=== PATIENT | female | born 1940 | race Caucasian/White ===

== ENCOUNTER 2017-03-23 05:08 | Inpatient (IN) | payer OTHER, BC ==
[~2017-03-23] VITALS: Ht 157.5 cm; Wt 79.4 kg
[~2017-03-23 05:08] MED LIST: LORA-741 PO; LXP10 PO
[2017-03-23 05:49] LABS: HEMATOCRIT 40.8 % (37-47); MEAN CELL VOLUME 90.7 fL (80-100); MEAN CORPUSCULAR HEMOGLOBIN 31.6 pg (25-34); MEAN CORPUSCULAR HGB CONC 34.8 g/dl (32-36); PLATELET COUNT 77 K/uL (130-400); WHITE BLOOD COUNT 4.59 K/uL (4.8-10.8)
[2017-03-23 05:51] LABS: INR 1.1 (0.9-1.1); PROTHROMBIN TIME (PATIENT) 12.2 SECONDS (9.0-12.0)
[2017-03-23] MEDS ORDERED: LORA-741 PO (05:57)
[2017-03-23] MEDS ORDERED: BUSP-8 PO (05:57)
[2017-03-23 06:01] LABS: BUN/CREATININE RATIO 10.1 (10-20); CALCIUM 8.6 mg/dl (8.5-10.1); CREATININE 0.93 mg/dl (0.60-1.20); POTASSIUM 3.8 mmol/L (3.5-5.1)
[2017-03-23 06:05] LABS: ALB/GLOB RATIO 1.1 (0.9-2); CKMB/CK RATIO 1.4 (0-3.0)
--- NOTE | 2017-03-23 06:37 | DIAGNOSTIC IMAGING REPORT ---
CHEST ONE VIEW PORTABLE CLINICAL HISTORY: cp dyspnea COMPARISON STUDY: 05/24/2015 FINDINGS: The bones soft tissues and hemidiaphragms are normal. The cardiomediastinal silhouette is normal. The lungs are clear. The pulmonary vasculature is normal. Prior median sternotomy. Bipolar cardiac pacer in good position IMPRESSION: No acute process. The above report was generated using voice recognition software. It may contain grammatical, syntax or spelling errors. Electronically signed by: Jackson Lind M.D. 03/23/2017 6:36 AM Dictated Date/Time: 03/23/2017 6:35 AM
--- NOTE | 2017-03-23 06:47 | DIAGNOSTIC IMAGING REPORT ---
GALLBLADDER-ABD LIMITED CLINICAL HISTORY: elevated lifts abnormal liver function tests TECHNIQUE: Ultrasound COMPARISON STUDY: 10/30/2012. FINDINGS: Several gallstones. Moderate gallbladder wall edema at 4 mm. Trace pericholecystic fluid. Fatty infiltration of liver. Pancreas and right kidney are unremarkable. Common bile duct 4 mm. IMPRESSION: Findings consistent with acute cholecystitis. Normal caliber bile duct. The above report was generated using voice recognition software. It may contain grammatical, syntax or spelling errors. Electronically signed by: Jackson Lind M.D. 03/23/2017 6:46 AM Dictated Date/Time: 03/23/2017 6:44 AM
[2017-03-23] MEDS ORDERED: AMPICILLIN/SULBACTAM SOD INJ 3,000 MG in SODIUM CHLORIDE 0.9% 100ML 100 ML IV ONE (07:00)
--- NOTE | 2017-03-23 07:19 | EMERGENCY ROOM VISIT NOTE ---
History Report prepared by Abhi: Tresa Kim Under the Supervision of: Dr. Denny Fernandez D.O. First contact with patient: 05:39 Chief Complaint: CHEST PAIN Stated Complaint: CHEST PAIN Nursing Triage Summary: pt woke at 0200 with the sweats which she has been having for past couple months, she then develoepd mid sternal cp. History of Present Illness The patient is a 76 year old female who presents to the Emergency Room with complaints of persistent chest pain starting 0200 today. The patient has a history of anxiety and believes this might have been an anxiety attack. The patient has been having trouble with night sweats for the past 3 months. Today she woke up with the night sweats, but then she started having chest tightness which seemed to worsen. She is still having some chest pain currently. She reports nausea. She denies any fever, SOB, or abdominal pain. She has a history of lyme disease. She denies any history of liver problems. She denies any recent illness. Source of History: patient Onset: 0200 Position: chest Quality: other (tightness) Timing: other (persistent) Associated Symptoms: + diaphoresis, + nausea, No fevers, No SOB, No abdominal pain Review of Systems See HPI for pertinent positives & negatives. A total of 10 systems reviewed and were otherwise negative. Past Medical & Surgical Medical Problems: (1) Chest pain (2) Depression (3) H/O sick sinus syndrome (4) Pacemaker Surgical Problems: (1) S/P SUSI-BSO Family History FH: CAD (coronary artery disease) BROTHER FH: dementia MOTHER Social History Smoking Status: Never Smoker Drug Use: none Marital Status: Occupation Status: retired Current/Historical Medications Scheduled Buspirone Hcl (Buspirone Hcl), 10 MG PO BID Scheduled PRN Lorazepam (Ativan), 0.5 MG PO DAILY PRN for Anxiety Allergies Coded Allergies: Phenytoin (Verified Allergy, Unknown, HIVES, 03/23/17) Atorvastatin (Verified Adverse Reaction, Unknown, Leg pain, 03/23/17) Mushroom (Verified Adverse Reaction, Unknown, diarrhea, 03/23/17) Physical Exam Vital Signs Date Time Temp Pulse Resp B/P (MAP) Pulse Ox O2 Delivery O2 Flow Rate FiO2 03/23/17 06:46 62 18 133/72 98 Room Air 03/23/17 06:08 60 16 98 03/23/17 06:01 138/76 03/23/17 05:38 60 14 100 03/23/17 05:31 164/72 03/23/17 05:18 99 Room Air 03/23/17 05:16 68 03/23/17 05:14 64 15 177/87 100 Room Air 03/23/17 05:14 177/87 03/23/17 05:14 100 Room Air Physical Exam CONSTITUTIONAL/VITAL SIGNS: Reviewed / noted above. GENERAL: Non-toxic in appearance. INTEGUMENTARY: Warm, dry, and [place]. HEAD: Normocephalic. EYES: without scleral icterus or trauma. ENT/OROPHARYNX: clear and moist. LYMPHADENOPATHY/NECK: Is supple without lymphadenopathy or meningismus. RESPIRATORY: Lungs clear and equal. CARDIOVASCULAR: Regular rate and rhythm. GI/ABDOMEN: Soft and nontender. No organomegaly or pulsatile mass. No rebound or guarding. Normal bowel sounds. EXTREMITIES: Warm and well perfused. BACK: No CVA tenderness. NEUROLOGICAL: Intact without focal deficits. PSYCHIATRIC: normal affect. MUSCULOSKELETAL: Normally developed with good muscle tone. Medical Decision & Procedures ER Provider Diagnostic Interpretation: X ray results and stated below per my interpretation and radiology review. Radiology results as stated below per my review and radiologist interpretation: Chest X-ray: No pneumonia, no pneumothorax, no acute disease. GALLBLADDER-ABD LIMITED CLINICAL HISTORY: elevated lifts abnormal liver function tests TECHNIQUE: Ultrasound COMPARISON STUDY: 10/30/2012. FINDINGS: Several gallstones. Moderate gallbladder wall edema at 4 mm. Trace pericholecystic fluid. Fatty infiltration of liver. Pancreas and right kidney are unremarkable. Common bile duct 4 mm. IMPRESSION: Findings consistent with acute cholecystitis. Normal caliber bile duct. The above report was generated using voice recognition software. It may contain grammatical, syntax or spelling errors. Electronically signed by: Jackson Lind M.D. 03/23/2017 6:46 AM Dictated Date/Time: 03/23/2017 6:44 AM Laboratory Results 03/23/17 05:17 03/23/17 05:17 Test 03/23/17 05:17 03/23/17 05:32 Red Blood Count 4.50 M/uL (4.2-5.4) Mean Corpuscular Volume 90.7 fL (80-100) Mean Corpuscular Hemoglobin 31.6 pg (25-34) Mean Corpuscular Hemoglobin Concent 34.8 g/dl (32-36) RDW Standard Deviation 46.3 fL (36.4-46.3) RDW Coefficient of Variation 13.9 % (11.5-14.5) Mean Platelet Volume 12.0 fL (7.4-10.4) Prothrombin Time 12.2 SECONDS (9.0-12.0) Prothromb Time International Ratio 1.1 (0.9-1.1) Activated Partial Thromboplast Time 26.8 SECONDS (21.0-31.0) Partial Thromboplastin Ratio 1.0 Anion Gap 7.0 mmol/L (3-11) Est Creatinine Clear Calc Drug Dose 49.7 ml/min Estimated GFR () 70.2 Estimated GFR (Non- 60.5 BUN/Creatinine Ratio 10.1 (10-20) Calcium Level 8.6 mg/dl (8.5-10.1) Total Bilirubin 2.3 mg/dl (0.2-1) Aspartate Amino Transf (AST/SGOT) 216 U/L (15-37) Alanine Aminotransferase (ALT/SGPT) 105 U/L (12-78) Alkaline Phosphatase 121 U/L (45-117) Total Creatine Kinase 57 U/L (26-192) Creatine Kinase MB 0.8 ng/ml (0.5-3.6) Creatine Kinase MB Ratio 1.4 (0-3.0) Total Protein 6.9 gm/dl (6.4-8.2) Albumin 3.6 gm/dl (3.4-5.0) Globulin 3.3 gm/dl (2.5-4.0) Albumin/Globulin Ratio 1.1 (0.9-2) Bedside Troponin I < 0.030 ng/ml (0-0.045) Laboratory results as stated above per my review. ECG Indication: chest pain Rate (beats per minute): 74 Rhythm: other (atrial paced) Findings: no ectopy, other (no acute injury) ED Course 0608: Previous medical records were reviewed. The patient was evaluated in room A10. A complete history and physical examination was performed. 0632: On reevaluation, the patient is resting comfortably. I discussed the results and findings with her. She verbalized agreement of the treatment plan. The patient will be evaluated for further management and care. 0633: I [facility] the [facility] The patient will be evaluated for further treatment and disposition. 0653: I reevaluated the patient. I updated her on the results. 0700: Ampicillin Sodium/Sulbactam Sodium 3000 mg/Sodium Chloride 108 ml @ 200 mls/hr IV. Medical Decision Differentials considered include acute myocardial infarction, acute coronary syndrome, myocarditis, pericarditis, pericardial effusions /tamponade, esophageal perforation, thoracic aortic dissection, pulmonary embolism, pneumonia, pneumothorax, pancreatitis, shingles, acute cholecystitis, and perforated abdominal viscus. This is a 76-year-old female who presents to the ED with a chief complaint of chest discomfort as well as some chills and night sweats. The patient states that her symptoms started around 2 AM this morning. She felt that it was related to an anxiety attack. The patient's exam was relatively unremarkable. She is in no distress. Her vital signs are stable. She is afebrile. Exam did not reveal any significant right upper quadrant abdominal tenderness. Chest x- ray did not show acute disease. CBC is normal, AST, alkaline phosphatase, ALT and bilirubin are elevated. An ultrasound reveals findings suggesting acute cholecystitis. Because of the elevated bilirubin and transaminases, I spoke with Dr. Vasquez from the hospitalist service for further inpatient evaluation and care. The patient likely will need MRCP/ERCP and subsequent cholecystectomy. She was given IV Unasyn. Medication Reconcilliation Current Medication List: was personally reviewed by me Blood Pressure Screening Patient's blood pressure: Elevated blood pressure Will be addressed by hospitalist. Consults Time Called: 0632 Consulting Physician: Isabel Nielson [facility] Returned Call: [phone] Discussed the patient's case. The patient will be evaluated for further treatment and disposition. Impression Primary Impression: Acute cholecystitis Additional Impression: Bile duct stone with cholecystitis and obstruction Scribe Attestation The scribe's documentation has been prepared under my direction and personally reviewed by me in its entirety. I confirm that the note above accurately reflects all work, treatment, procedures, and medical decision making performed by me. Departure Information Dispostion Being Evaluated By Hospitalist Referrals Benson Sepulveda III, M.D. (PCP) Patient Instructions My [facility] Problem Qualifiers
[2017-03-23 07:54] VITALS: O2SAT 98; Ht 157.5 cm; Wt 79.4 kg
[2017-03-23] MEDS ORDERED: ONDANSETRON INJ 2 MG/ML 2 ML VIAL IV PRN (09:15)
--- NOTE | 2017-03-23 09:32 | EMERGENCY ROOM VISIT NOTE ---
ED Visit Note Patient was initially admitted to internal medicine. Patient was not signed out to me. My PA received a phone call from Dr. Johnson stating that he wants general surgery to admit this patient. I called the general surgeon who recommended that internal medicine admit the patient following reviewing the case. I then called back to internal medicine attending and discussed this with him. Patient will be admitted to internal medicine with a general surgery consult for acute cholecystitis on with a transaminitis and elevated bilirubin.
[2017-03-23 10:09] VITALS: BP 145/81; PULSE 71; TEMP 36.8; O2SAT 97
--- NOTE | 2017-03-23 10:32 | HISTORY & PHYSICAL EXAMINATION ---
DATE OF ADMISSION: 03/23/2017 PRIMARY CARE PROVIDER: Benson Sepulveda MD CHIEF COMPLAINT: Woke up with the chest pressure across the lower chest since around 04:00 a.m. with shortness of breath. 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 Apparently, she has been complaining of night sweats for about 4 months. She has had investigations for that, but did not have any significant cause for that. Early this morning today, she woke up with lower chest pressure across the chest, associated with shortness of breath. She did not have any fever or any sweating, but she has had some nausea but no vomiting. She has had these symptoms about 1 month ago that resolved spontaneously, but today, it did not go away and then, she came to the Emergency Room. She denies having any pain in the abdomen or any abdominal distention. She does not have any problem with urine and/or bowel habit. Denies to have any fever, any chills, any blurred vision, or any numbness or tingling in the extremities. In the Emergency Room, she was hemodynamically stable and she was noted to have elevated liver function tests on examination and also ultrasound did show acute cholecystitis. From that point, she was admitted to the hospital for further evaluation. Given her Lyme carditis and also ongoing chest pain, she was admitted to telemetry unit to rule out any ACS as well. PAST MEDICAL HISTORY: Significant sinus node dysfunction status post pacemaker, history of Lyme carditis, depression, hyperlipidemia, atypical chest pain and also migraine. PAST SURGICAL HISTORY: Total hysterectomy and status post pacemaker placement. FAMILY HISTORY: Significant that brother has heart disorder. Father had cerebral hemorrhage. Mother has dementia. SOCIAL HISTORY: She is . She has 2 children. She lives with her and she has been reasonably ambulant. REVIEW OF SYSTEMS: Systems reviewed are unremarkable except for those mentioned in history of present complaint. ALLERGIES: SHE IS ALLERGIC TO ATORVASTATIN, MUSHROOM AND PHENYTOIN. MEDICATIONS: As an outpatient, she has been on buspirone 10 mg b.i.d. and lorazepam 0.5 mg daily as needed. In the Epic system, she is noted to have Imitrex, gabapentin and also Boniva. PHYSICAL EXAMINATION: GENERAL: On examination in the Emergency Room, she was not having any acute distress. VITAL SIGNS: Temperature afebrile, pulse 64, blood pressure 110/59 and saturation 95% on room air. HEENT: Unremarkable. NECK: Supple. No JVD and no bruit. CHEST: Clear to auscultation bilaterally. HEART: S1 and S2 regular. ABDOMEN: Soft and benign. Minimally tender right upper quadrant. Vincent sign negative. Bowel sounds present. RECTAL: Deferred. EXTREMITIES: Trace edema bilaterally, more on the right than the left side. CENTRAL NERVOUS SYSTEM: She was alert, awake, and oriented x3. No focal sensory and/or motor deficit appreciated. LABORATORY DATA: Noted today, white count was 4.59, H&H is 14.2/40.8, and platelets was 77. Sodium 140, potassium 3.8, chloride 108, CO2 was 25, BUN 9, creatinine 0.93, random glucose 101, and calcium 8.6. Total bilirubin was 2.3. AST 216, ALT 105, and alkaline phosphatase 121. Troponin was less than 0.03. PT/INR unremarkable. DIAGNOSTIC STUDIES: Chest x-ray reported as no acute process and ultrasound of the gallbladder findings consistent with acute cholecystitis, normal caliber bile duct. EKG was in atrial paced rhythm and rate of [address]-T wave changes. IMPRESSION AND PLAN: 1. Atypical chest pain. The patient will be admitted to the telemetry unit. Doubt any acute coronary syndrome. Serial cardiac enzymes to rule out acute coronary syndrome. EKG with chest pain. Doubt any need for doing any echo at this time. 2. Acute cholecystitis. Ultrasonographic findings consistent with cholecystitis and associated with increased LFTs. No white count. The patient has a history of night sweats and continue with intravenous Unasyn. Surgery consultation. Probable cholecystectomy down the line. 3. 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 Serial cardiac enzymes and no acute findings at this time. 4. Hyperlipidemia. SHE IS ALLERGIC TO STATINS. Not taking any medications at this time. 5. Migraine. No acute attack. Had been on Imitrex as an outpatient. We will continue that if needed. 6. Depression and anxiety. Has been on BuSpar and Ativan. Continue with that. 7. Gastrointestinal prophylaxis with Maalox and Mylanta as needed. 8. Deep venous thrombosis prophylaxis. Her platelet count seems to be low at this time. She has had low platelet since 2013. We will not order any heparin at this time for anticoagulation. Monitor the platelet with SCDs and ambulation as soon as possible. 9. Code status. She will be a full code and further management will depend on clinical course. In my clinical judgment, the beneficiary meets criteria as per CMS for 2 midnight stay in the hospital. DC
--- NOTE | 2017-03-23 10:36 | Pre-Operative Consultation ---
History General Date of Service: Mar 23, 2017. Stated Complaint: "hot flashes" HPI HPI: The patient is a 76 year old female being seen for symptomatic cholelithiasis/ possible CBD stones and signs of cholecystitis. She presented to the Emergency Room with complaints of persistent chest pain starting last night. She descibes many of these episodes over the last month. The patient has a history of anxiety and believes this might have been an anxiety attack. The patient has been having trouble with night sweats for the past 3 months. Today she woke up with the night sweats, but then she started having chest tightness which seemed to worsen. Pain is better. She denies any fever, SOB, or abdominal pain. She has a history of lyme disease. She denies any history of liver problems. She denies any recent illness. Procedure Urgency: Acute Risk Assessment Daily beta jordon use?: No Problem List Medical Problems: (1) Acute cholecystitis Status: Acute (2) Bile duct stone with cholecystitis and obstruction Status: Acute (3) Precordial chest pain Status: Acute Medical & Surgical History Past Medical History: other (lyme disease with cardiomyopathy s/p pacer) Past Surgical History: other (pacer complicated with median sternotomy for ventricular injury during procedure) Family History Family History: heart disease, other (dementia) Social History Hx Tobacco Use In Past Year?: No (QUIT 40 YEARS AGO) Smoking Status: Never Smoker Drug Use: none Marital status: Housing status: lives with family Occupation status: retired Immunizations Have You Had Influenza Vaccine: N/A Have You Had Tetanus Vaccine: Unknown Date Of Tetanus Immunization: Aug 03, 2012 History of Pneumococcal: Unknown Date of Pneumococcal Vaccine: Oct 26, 2010 History Hepatitis B Vaccine: Unknown Allergies Allergies: Coded Allergies: Phenytoin (Verified Allergy, Unknown, HIVES, 03/23/17) Atorvastatin (Verified Adverse Reaction, Unknown, Leg pain, 03/23/17) Mushroom (Verified Adverse Reaction, Unknown, diarrhea, 03/23/17) Medications Current Inpatient Medications Current Inpatient Medications Medications (Trade) Dose Ordered Sig/Ellen Route Start Time Stop Time Status Last Admin Dose Admin Potassium Chloride/Sodium Chloride 1,000 ml @ 125 mls/hr Q8H IV 03/23/17 09:06 04/22/17 09:05 UNV Acetaminophen (Tylenol Tab) 650 mg Q4H PRN PO 03/23/17 09:15 10/24/17 09:14 UNV Ondansetron HCl (Zofran Inj) 4 mg Q6H PRN IV 03/23/17 09:15 04/22/17 09:14 UNV Ampicillin Sodium/ Sulbactam Sodium 3000 mg/Sodium Chloride 108 ml @ 200 mls/hr Q6H IV 03/23/17 09:15 04/02/17 09:14 UNV Lorazepam (Ativan Tab) 0.5 mg DAILY PRN PO 03/23/17 09:15 04/22/17 09:14 UNV Non-Formulary Medication (Buspirone Hcl ) 10 mg BID PO 03/23/17 21:00 04/22/17 20:59 UNV Review of Systems Review of Systems Constitutional: chills, denies diaphoresis, fever, denies weakness Eyes: reports: no symptoms ENT: reports: no symptoms reported Cardiovascular: reports: chest pain, chest tightness, diaphoresis, denies: chest pressure, palpitations, syncope Respiratory: denies: cough, short of breath, stridor, cyanosis Gastrointestinal: abdominal pain, denies constipation, denies diarrhea, nausea , denies vomiting Genitourinary - Female: reports: no symptoms Musculoskeletal: denies back pain, denies joint pain, denies joint swelling, denies muscle pain, denies muscle stiffness, denies neck pain Integumentary: denies change in hair/nails, denies dryness, denies lumps, denies rash Neurologic: denies: headache, numbness, seizure, general weakness, focal weakness Psychiatric: reports: no symptoms Endocrine: no symptoms Hematologic / Lymphatic: no symptoms Allergic / Immunologic: no symptoms Physical Exam Physical Exam General Appearance: + WD/WN, No distress Ears, Nose, Throat: + normal ENT inspection Neck: No abnormal inspection, No tracheal deviation, No lymphadenophy, No stiffness, No tenderness Respiratory: No decreased breath sounds, No rhonchi, No stridor, No wheezing Cardiovascular: No tachycardia, No gallop/S3, No diastolic murmur, No gallop/S4 , No bradycardia, No systolic murmur Abdomen: + tenderness (mild RUQ), No abnormal bowel sounds, No rebound, No distension, No hernia, No organomegaly, No guarding Extremities: No deformity, No unstable pelvis, No calf tenderness, No inflammation Neurologic/Psychiatric: No motor deficit/weakness, No disorientation, No sensory deficit Skin Characteristics: No abnormal color, No diaphoresis, No pallor, No jaundice , No rash Lymphatic: No abnormal adenopathy Diagnostics Labs Labs Results Past 24 Hours Test 03/23/17 05:17 03/23/17 05:32 03/23/17 09:39 Range/Units White Blood Count 4.59 4.8-10.8 K/uL Red Blood Count 4.50 4.2-5.4 M/uL Hemoglobin 14.2 12.0-16.0 g/dL Hematocrit 40.8 37-47 % Mean Corpuscular Volume 90.7 80-100 fL Mean Corpuscular Hemoglobin 31.6 25-34 pg Mean Corpuscular Hemoglobin Concent 34.8 32-36 g/dl RDW Standard Deviation 46.3 36.4-46.3 fL RDW Coefficient of Variation 13.9 11.5-14.5 % Platelet Count 77 130-400 K/uL Mean Platelet Volume 12.0 7.4-10.4 fL Prothrombin Time 12.2 9.0-12.0 SECONDS Prothromb Time International Ratio 1.1 0.9-1.1 Activated Partial Thromboplast Time 26.8 21.0-31.0 SECONDS Partial Thromboplastin Ratio 1.0 Sodium Level 140 136-145 mmol/L Potassium Level 3.8 3.5-5.1 mmol/L Chloride Level 108 98-107 mmol/L Carbon Dioxide Level 25 21-32 mmol/L Anion Gap 7.0 3-11 mmol/L Blood Urea Nitrogen 9 7-18 mg/dl Creatinine 0.93 0.60-1.20 mg/dl Est Creatinine Clear Calc Drug Dose 49.7 ml/min Estimated GFR () 70.2 Estimated GFR (Non- 60.5 BUN/Creatinine Ratio 10.1 10-20 Random Glucose 101 70-99 mg/dl Calcium Level 8.6 8.5-10.1 mg/dl Total Bilirubin 2.3 0.2-1 mg/dl Aspartate Amino Transf (AST/SGOT) 216 15-37 U/L Alanine Aminotransferase (ALT/SGPT) 105 12-78 U/L Alkaline Phosphatase 121 45-117 U/L Total Creatine Kinase 57 26-192 U/L Creatine Kinase MB 0.8 0.5-3.6 ng/ml Creatine Kinase MB Ratio 1.4 0-3.0 Total Protein 6.9 6.4-8.2 gm/dl Albumin 3.6 3.4-5.0 gm/dl Globulin 3.3 2.5-4.0 gm/dl Albumin/Globulin Ratio 1.1 0.9-2 Bedside Troponin I < 0.030 0-0.045 ng/ml Troponin I < 0.015 0-0.045 ng/ml Diagnostic Radiology Diagnostic Radiology GALLBLADDER-ABD LIMITED CLINICAL HISTORY: elevated lifts abnormal liver function tests TECHNIQUE: Ultrasound COMPARISON STUDY: 10/30/2012. FINDINGS: Several gallstones. Moderate gallbladder wall edema at 4 mm. Trace pericholecystic fluid. Fatty infiltration of liver. Pancreas and right kidney are unremarkable. Common bile duct 4 mm. IMPRESSION: Findings consistent with acute cholecystitis. Normal caliber bile duct. Impression Assessment and Plan Assessment and Plan Acute cholecystitis with possible CBD stone; TB 2.1 but normal CBD diameter -IVF -IV abx -GI consult to assess possible need for ERCP -will place on schedule for lap tootie with IOC and possible ERCP per GI medicine -Dr Booth/Marissa to do in morning
[2017-03-23] MEDS: NSS + 20MEQ KCL 1000ML 1,000 ML IV SCH ×2 (10:58→18:14)
[2017-03-23] MEDS: AMPICILLIN/SULBACTAM SOD INJ 3,000 MG in SODIUM CHLORIDE 0.9% 100ML 100 ML IV SCH ×2 (13:34→19:56)
[2017-03-23] MEDS ORDERED: HEPARIN SOD 5000 UNIT/0.5 ML CARP SQ SCH (14:00)
[2017-03-23 16:12] VITALS: BP 132/76; PULSE 58; TEMP 36.5; O2SAT 98
--- NOTE | 2017-03-23 17:53 | Anesthesiology Progress Note ---
Pre-OP Anesthesia Assessment Date of Note Mar 23, 2017. Review patient information reviewed, chart reviewed, labs reviewed, acceptable for surgery Notes Her comorbidities include sick sinus syndrome 2/2 Lyme disease for which she has a pacemaker. The Lyme disease caused a pericarditis which resulted a pericardectomy. She has a history of atypical chest pain and was admitted this time with chest pain and shortness of breath. Acute coronary has been ruled out. She has been having night sweats for the past four months, etiology unknown. She had an echocardiogram in 04/2015 which was normal with an EF of 60- 65%. She had a dobutamine stress echo in 2012 which was non-ischemic. She is very active physically. Her airway exam suggests her cords may be anterior. She is a mallampatti 2 with 2 1/2 finger-breadth thyromental distance.
[2017-03-23] MEDS: LORAZEPAM 0.5 MG TAB PO PRN (18:13)
[2017-03-23 19:59] VITALS: BP 143/72; PULSE 64; TEMP 36.5; O2SAT 99
[2017-03-24] VITALS (8 sets, daily range): BP systolic 109–158; BP diastolic 65–76; PULSE 61–84; TEMP 36.3–36.6; O2SAT 97–100
[2017-03-24] MEDS: AMPICILLIN/SULBACTAM SOD INJ 3,000 MG in SODIUM CHLORIDE 0.9% 100ML 100 ML IV SCH ×4 (02:13→21:37)
[2017-03-24] MEDS: NSS + 20MEQ KCL 1000ML 1,000 ML IV SCH ×3 (03:09→23:42)
[2017-03-24 07:20] LABS: HEMATOCRIT 40.9 % (37-47); MEAN CELL VOLUME 92.1 fL (80-100); MEAN CORPUSCULAR HEMOGLOBIN 30.4 pg (25-34); RED BLOOD COUNT 4.44 M/uL (4.2-5.4); WHITE BLOOD COUNT 2.92 K/uL (4.8-10.8)
[2017-03-24 07:22] LABS: MEAN PLATELET VOLUME 11.4 fL (7.4-10.4); PLATELET COUNT 60 K/uL (130-400)
[2017-03-24 07:47] LABS: BUN/CREATININE RATIO 8.9 (10-20); CALCIUM 8.5 mg/dl (8.5-10.1); CREATININE 0.81 mg/dl (0.60-1.20); POTASSIUM 4.1 mmol/L (3.5-5.1)
--- NOTE | 2017-03-24 08:49 | Surgery Progress Note ---
Surgery Progress Note Date of Service Mar 24, 2017. Subjective Post OP Day: + feeling well, + complaints (back pain from lying on bed), No chest pain, No SOB, No nausea, No vomiting Objective Vital Signs: Date Time Temp Pulse Resp B/P (MAP) Pulse Ox O2 Delivery O2 Flow Rate FiO2 03/24/17 07:34 99 03/24/17 07:23 36.6 61 16 134/76 (95) 99 Room Air 03/24/17 04:36 36.5 67 16 119/65 (83) 100 Room Air 03/24/17 04:00 Room Air 03/24/17 01:58 36.4 65 17 109/65 (80) 97 Room Air 03/23/17 23:35 Room Air 03/23/17 20:00 Room Air 03/23/17 19:59 36.5 64 16 143/72 (95) 99 Room Air 03/23/17 16:12 36.5 58 16 132/76 (94) 98 Room Air 03/23/17 16:00 Room Air 03/23/17 12:00 Room Air 03/23/17 10:09 36.8 71 20 145/81 (102) 97 Room Air 03/23/17 09:42 60 18 117/65 95 Room Air 03/23/17 08:57 61 General Appearance: WD/WN, no apparent distress Head: normocephalic, atraumatic Neck: trachea midline Respiratory/Chest: no respiratory distress, no accessory muscle use Abdomen: non tender, non distended, soft, no organomegaly, no pulsatile mass Laboratory Results: Results Past 24 Hours Test 03/23/17 09:39 03/23/17 15:20 03/23/17 21:01 03/24/17 06:31 Range/Units Troponin I < 0.015 < 0.015 < 0.015 0-0.045 ng/ml White Blood Count 2.92 4.8-10.8 K/uL Red Blood Count 4.44 4.2-5.4 M/uL Hemoglobin 13.5 12.0-16.0 g/dL Hematocrit 40.9 37-47 % Mean Corpuscular Volume 92.1 80-100 fL Mean Corpuscular Hemoglobin 30.4 25-34 pg Mean Corpuscular Hemoglobin Concent 33.0 32-36 g/dl RDW Standard Deviation 46.7 36.4-46.3 fL RDW Coefficient of Variation 13.8 11.5-14.5 % Platelet Count 60 130-400 K/uL Mean Platelet Volume 11.4 7.4-10.4 fL Sodium Level 142 136-145 mmol/L Potassium Level 4.1 3.5-5.1 mmol/L Chloride Level 110 98-107 mmol/L Carbon Dioxide Level 23 21-32 mmol/L Anion Gap 9.0 3-11 mmol/L Blood Urea Nitrogen 7 7-18 mg/dl Creatinine 0.81 0.60-1.20 mg/dl Est Creatinine Clear Calc Drug Dose 57.2 ml/min Estimated GFR () 82.9 Estimated GFR (Non- 71.5 BUN/Creatinine Ratio 8.9 10-20 Random Glucose 80 70-99 mg/dl Calcium Level 8.5 8.5-10.1 mg/dl Total Bilirubin 1.9 0.2-1 mg/dl Aspartate Amino Transf (AST/SGOT) 137 15-37 U/L Alanine Aminotransferase (ALT/SGPT) 116 12-78 U/L Alkaline Phosphatase 117 45-117 U/L Total Protein 6.6 6.4-8.2 gm/dl Albumin 3.3 3.4-5.0 gm/dl Globulin 3.3 2.5-4.0 gm/dl Albumin/Globulin Ratio 1.0 0.9-2 Assessment & Plan 76 year-old female with cholecystitis and elevated total bilirubin and LFTs. Abdominal ultrasound showing thickened gallbladder and multiple gallstones. No leukocytosis. Abdominal examination benign. Presented with chest pain/ pressure. Cardiac work-up negative. Todays labs show decrease in total bilirubin however still elevated. LFTs still elevated as well (AST 137, ALT 116 ) Alk Phos normal at 117. Plan: Plan for laparoscopic possible open cholecystectomy today. Dr. Booth has discussed surgery with patient and risks and informed consent obtained GI consultation was placed given elevated total bilirubin, await recommendations if not MRCP will plan for intraoperative cholangiogram Continue current medical management Keep patient NPO Dr. Booth has seen and examined patient, agrees with above
[2017-03-24] MEDS: LORAZEPAM 0.5 MG TAB PO PRN (10:41)
[2017-03-24] MEDS ORDERED: LIDOCAINE HCL 1% 20 ML VIAL ONE (11:20)
[2017-03-24] MEDS ORDERED: BUPIVACAINE 0.5 % 5 MG/1 ML MPF 30ML VIAL ONE (11:20)
[2017-03-24] MEDS ORDERED: CONRAY 60% 50 ML VIAL ONE (11:21)
--- NOTE | 2017-03-24 11:33 | History & Physical Bridge Note ---
H&P Re-Evaluation Bridge Note: I have examined the patient, reviewed the History & Physical and in the interval since the performance of the History & Physical I have noted the following changes of clinical significance: No changes noted
[2017-03-24] MEDS ORDERED: MIDAZOLAM HCL 1 MG/ML 2ML VIAL ONE (11:37)
[2017-03-24] MEDS ORDERED: PROPOFOL IV EMULSION 10 MG/ML 20 ML VIAL IV ONE (11:37)
[2017-03-24] MEDS ORDERED: FENTANYL CITRATE INJ 50 MCG/1 ML 2 ML VIAL ONE ×3 (11:37→14:02)
[2017-03-24] MEDS ORDERED: LIDOCAINE HCL 2% 2 ML VIAL (20MG/ML) ONE (11:37)
[2017-03-24] MEDS ORDERED: GLYCOPYRROLATE INJ 0.2 MG/ML VIAL ONE (11:40)
[2017-03-24] MEDS ORDERED: NEOSTIGMINE METHYLSULFATE 5 MG/5 ML SYR ONE (11:40)
--- NOTE | 2017-03-24 11:48 | Gastrointestinal Consultation ---
Gastrointestinal Consultation Date of Consultation: Mar 24, 2017 Attending Physician: Marj Johnson Consulting Physician: Rafael Kelly Reason for Consultation: Elevated bilirubin History of Present Illness Patient is a 76 year old female w PMHx of sinus node dysfunction s/p pacemaker placement, Lyme carditis, depression, hyperlipidemia, migraines who presented w c/o night sweats x 4 months. She also woke up early yesterday morning w lower chest pressure across lower chest and SOB. She denies any abd pain, n/v, fever, chills. Upon eval, VS stable, labs showed elevated LFTs: Tbili 2.3, AST 216, ALT 105, AP 121. Gallbladder u/s showed acute cholecystitis, but normal caliber CBD. She was seen by Dr. Thurston who recommended lap cholecystectomy (to be done at noon by Dr. Booth today). She will have intra op cholangiogram and if positive for CBD stone will need ERCP. Past Medical/Surgical History Medical Problems: (1) Acute cholecystitis Status: Acute (2) Bile duct stone with cholecystitis and obstruction Status: Acute (3) Precordial chest pain Status: Acute Past Medical History: See above Past Surgical History: Total hysterectomy Pacemaker placement Family History FH: CAD (coronary artery disease) BROTHER FH: dementia MOTHER Social History Smoking Status: Never Smoker Drug Use: none Marital Status: Occupation Status: retired Allergies Coded Allergies: Phenytoin (Verified Allergy, Unknown, HIVES, 03/23/17) Atorvastatin (Verified Adverse Reaction, Unknown, Leg pain, 03/23/17) Mushroom (Verified Adverse Reaction, Unknown, diarrhea, 03/23/17) Current Medications Home Meds and Scripts Medications Dose Route/Sig Max Daily Dose Days Date Category Ativan (Lorazepam) 0.5 Mg Tab 0.5 Mg PO DAILY PRN 03/23/17 Reported Buspirone Hcl 10 Mg Tab 10 Mg PO BID 03/23/17 Reported Review of Systems Constitutional: + sweats, No fever, No chills Respiratory: No cough, No shortness of breath Cardiac: No chest pain Abdomen: No pain, No nausea, No vomiting Skin: + jaundice, No rash, No itch Physical Exam Date Time Temp Pulse Resp B/P (MAP) Pulse Ox O2 Delivery O2 Flow Rate FiO2 03/24/17 08:00 Room Air 03/24/17 07:34 99 03/24/17 07:23 36.6 61 16 134/76 (95) 99 Room Air 03/24/17 04:36 36.5 67 16 119/65 (83) 100 Room Air 03/24/17 04:00 Room Air 03/24/17 01:58 36.4 65 17 109/65 (80) 97 Room Air 03/23/17 23:35 Room Air 03/23/17 20:00 Room Air 03/23/17 19:59 36.5 64 16 143/72 (95) 99 Room Air 03/23/17 16:12 36.5 58 16 132/76 (94) 98 Room Air 03/23/17 16:00 Room Air 03/23/17 12:00 Room Air General Appearance: WD/WN, no apparent distress Eyes: normal inspection, PERRL, EOMI Neck: supple, no JVD, trachea midline Respiratory/Chest: normal breath sounds, no respiratory distress, no accessory muscle use Cardiovascular: regular rate, rhythm, no gallop, no murmur Abdomen: normal bowel sounds, non tender, soft Extremities: normal inspection, no pedal edema, no calf tenderness Neurologic/Psych: alert, normal mood/affect, oriented x 3 Skin: normal color, no jaundice, no rash Laboratory Results Last 24 Hours Test 03/23/17 15:20 03/23/17 21:01 03/24/17 06:31 Troponin I < 0.015 ng/ml < 0.015 ng/ml White Blood Count 2.92 K/uL Red Blood Count 4.44 M/uL Hemoglobin 13.5 g/dL Hematocrit 40.9 % Mean Corpuscular Volume 92.1 fL Mean Corpuscular Hemoglobin 30.4 pg Mean Corpuscular Hemoglobin Concent 33.0 g/dl RDW Standard Deviation 46.7 fL RDW Coefficient of Variation 13.8 % Platelet Count 60 K/uL Mean Platelet Volume 11.4 fL Sodium Level 142 mmol/L Potassium Level 4.1 mmol/L Chloride Level 110 mmol/L Carbon Dioxide Level 23 mmol/L Anion Gap 9.0 mmol/L Blood Urea Nitrogen 7 mg/dl Creatinine 0.81 mg/dl Est Creatinine Clear Calc Drug Dose 57.2 ml/min Estimated GFR () 82.9 Estimated GFR (Non- 71.5 BUN/Creatinine Ratio 8.9 Random Glucose 80 mg/dl Calcium Level 8.5 mg/dl Total Bilirubin 1.9 mg/dl Aspartate Amino Transf (AST/SGOT) 137 U/L Alanine Aminotransferase (ALT/SGPT) 116 U/L Alkaline Phosphatase 117 U/L Total Protein 6.6 gm/dl Albumin 3.3 gm/dl Globulin 3.3 gm/dl Albumin/Globulin Ratio 1.0 Impression Patient is a 76 year old female w c/o lower chest pressure, sweats symptoms, cardiac testing unremarkable. LFTs elevated, gallbladder u/s showed acute cholecystitis w normal caliber CBD. LFTs improving this AM, she is w/o abd pain , n/v, jaundice. Plan - NPO for lap cholecystectomy by Dr. Booth at noon. - Will follow up on IOC, if positive, plan for ERCP - Continue current antibiotic coverage. Attg addendum: I reviewed chart and labs. Pt for tootie and IOC -- please reconsult as needed.
[2017-03-24] MEDS ORDERED: SURGICEL ABSORB HEMOSTAT 2IN X 14IN TOP ONE (13:54)
[2017-03-24] MEDS ORDERED: ROCURONIUM BROMIDE 10 MG/ML 5 ML VIAL IV ONE (13:57)
--- NOTE | 2017-03-24 14:41 | [facility] Operative Report ---
Operative Report Operative Date Mar 24, 2017. Pre-Operative Diagnosis Acute Cholecystitis Post-Operative Diagnosis Same as preoperative Procedure(s) Performed Laparoscopic Cholecystectomy with Cholangiogram Surgeon Carlie Booth MD [employer] Surgeon(s) Anna Ozuna PA-C Estimated Blood Loss 5 ml Findings Edematous gallbladder with adhesions, firm liver with cobblestone appearance Fluids 700 ml Specimens A.) Gallbladder and contents to pathology Drains None Anesthesia GETA, 15ml of local anesthetic (1% Xylocaine + 0.5% Marcaine, 50/50 mix) Complication(s) None Disposition Recovery Room / PACU Indications Trudy Cowan is a 76 year old woman with acute cholecystitis. Indications, risks, benefits and potential complications of laparoscopic cholecystectomy, possible open, possible intraoperative cholangiogram were discussed in detail with the patient. All questions answered to apparent satisfaction. Patient chose to proceed with surgery and freely signed the consent form. Description of Procedure Patient was brought to the operating room identified as Trudy Cowan, . She was placed on the operating table in supine position. Anesthesia was induced, and she was intubated without difficulty. The abdomen was prepped and draped in the usual sterile fashion. A time-out was held, verifying correct patient, site, procedure, allergies, pre op antibiotics, equipment and personnel. Local anesthetic was injected subcutaneously and an incision was made above the umbilicus. This was carried down through subcutaneous tissues; fascia was identified and two Sudha clamps were placed for upward traction. The fascia was incised using a scalpel. Peritoneum was identified, and two hemostats were placed for upward traction. This was incised using Metzenbaum scissors to enter the abdomen. A 12mm port was placed, and the 10mm endoscope was inserted. The abdomen was explored. The liver was cirrhotic and nodular in appearance. The gallbladder was slightly edematous appearing. A 5mm port was placed sub-xiphoid. The patient was placed in reverse Trendelenberg and left side down. Two more 5mm ports were placed along the right costal margin, approximately 4cm below under direct vision. The dome of the gallbladder was grasped and retracted cranially. The neck of the gallbladder was grasped and retracted laterally to open the area of dissection. Adhesions were taken down using gentle blunt dissection and electrocautery to reveal the cystic duct. This was dissected out and clearly defined using [place] graspers. The cystic artery was identified medial to the cystic duct; this also was dissected out circumferentially using [place] graspers. At this point, the critical view of safety was clearly visualized, with the cystic artery and duct leading only into the gallbladder with liver visible between and behind the two structures. A 5mm clip was placed on proximal cystic duct, and a partial ductotomy was made. A catheter was placed into the ductotomy leading to distal cystic duct, and a 2mm balloon inflated to secure the catheter in place. Saline was at first injected with some resistance. The catheter was repositioned, with subsequent saline injection without resistance. 5mm of contrast dye was then injected under direct fluoroscopy for the cholangiogram. Dye was seen to flow into the hepatic duct and both right and left hepatic ducts, as well as distally into the small intestine. The balloon was deflated and the catheter removed. Three clips were placed on the distal cystic duct, and the duct was cut with endoscopic scissors. The cystic artery was also clipped and cut. The gallbladder was then dissected off the liver bed using the hook for electrocautery. Once liberated from surrounding tissue, the gallbladder was placed in an Endocatch bag and was removed from the abdomen. The gallbladder fossa was inspected, and found to be hemostatic. A small amount of oozing was noted near the area of the clips, and a piece of surgicel was applied. The surgical site was again inspected and found to be hemostatic. The right upper quadrant was evacuated of irrigation fluid. 5mm ports were removed under direct vision. Insufflation was released and the 12mm port was removed. The sponge and instrument counts were verified to be correct x 2 by the nurse in charge. Fascia was closed at the umbilical port using 0 Vicryl in interrupted fashion. Skin was closed with Monocryl and Dermabond was applied. Patient was then awakened from anesthesia, extubated without difficulty, and was taken to PACU, having suffered no untoward events. I attest to the content of the Intraoperative Record and any orders documented therein. Any exceptions are noted below.
--- NOTE | 2017-03-24 14:42 | DIAGNOSTIC IMAGING REPORT ---
CHOLANGIOGRAM O.R. CLINICAL HISTORY: 76 years-old Female presenting with intraoperative evaluation of the bile ducts. TECHNIQUE: Fluoroscopy was provided for an intraoperative cholangiogram status post cholecystectomy. Contrast was injected through the cystic duct remnant. COMPARISON: Ultrasound from 03/23/2017. FINDINGS: A guidewire was introduced via the cystic duct remnant into the common duct. Cholecystectomy clips noted. No extravasation of contrast via the cystic duct remnant. The common bile duct is normal in course and caliber. There are no filling defects seen within the common bile duct to suggest a retained stone. Contrast extends into the small bowel. There is no intrahepatic bile duct dilatation. Fluoroscopy dosage (mGy): Not available. Fluoroscopy time: 25 seconds. Number of fluoroscopic spot images: 9. IMPRESSION: Fluoroscopy provided for an intraoperative cholangiogram status post cholecystectomy. No filling defects within the common bile duct. Electronically signed by: Sanjay Bang M.D. 03/24/2017 2:41 PM Dictated Date/Time: 03/24/2017 2:39 PM
[2017-03-24] MEDS ORDERED: OXYCODONE HCL IR 5 MG TAB (IMMEDIATE RELEASE) PO PRN (14:45)
[2017-03-24] MEDS ORDERED: MoRPHine SULFATE 2 MG/ML CARP IV PRN (14:45)
[2017-03-24] MEDS ORDERED: EpHEDrine SULFATE INJ 50 MG/ML AMP IV PRN (15:15)
[2017-03-24] MEDS ORDERED: FENTANYL CITRATE INJ 50 MCG/1 ML 2 ML VIAL IV PRN (15:15)
[2017-03-24] MEDS ORDERED: ATROPINE SULFATE 0.1 MG/ML 5ML SYR IV PRN (15:15)
[2017-03-24] MEDS ORDERED: FLUMAZENIL 0.1 MG/1 ML 10 ML VIAL IV PRN (15:15)
[2017-03-24] MEDS ORDERED: NALOXONE HCL 0.4 MG/1 ML VIAL/CARP IV PRN (15:15)
[2017-03-24] MEDS ORDERED: PROMETHAZINE HCL INJ 12.5 MG in SODIUM CHLORIDE 0.9% 50ML 50 ML IV PRN (15:15)
[2017-03-24] MEDS ORDERED: ONDANSETRON INJ 2 MG/ML 2 ML VIAL IV PRN (15:15)
[2017-03-24] MEDS ORDERED: LABETALOL HCL IV 5 MG/ML 20ML IV PRN (15:15)
--- NOTE | 2017-03-24 15:17 | Anesthesiology Progress Note ---
Anesthesia Post Op Note Date & Time Mar 24, 2017 at 15:16 Vital Signs Pain Intensity: 0 Vital Signs Past 12 Hours Date Time Temp Pulse Resp B/P (MAP) Pulse Ox O2 Delivery O2 Flow Rate FiO2 03/24/17 15:09 63 15 97 03/24/17 15:09 63 15 97 03/24/17 15:09 63 15 03/24/17 15:09 63 15 03/24/17 15:06 148/71 03/24/17 15:06 148/71 03/24/17 15:04 60 15 03/24/17 15:04 60 15 100 03/24/17 15:04 60 15 100 03/24/17 15:04 60 15 03/24/17 15:01 162/72 03/24/17 15:01 162/72 03/24/17 14:59 65 15 100 03/24/17 14:59 65 15 03/24/17 14:59 65 15 100 03/24/17 14:59 65 15 03/24/17 14:56 141/72 03/24/17 14:56 141/72 03/24/17 14:54 69 16 03/24/17 14:54 69 16 03/24/17 14:54 69 16 100 03/24/17 14:54 69 16 100 03/24/17 14:51 140/71 03/24/17 14:51 140/71 03/24/17 14:49 69 21 03/24/17 14:49 69 21 03/24/17 14:49 69 21 100 03/24/17 14:49 69 21 100 03/24/17 14:46 135/72 03/24/17 14:46 135/72 03/24/17 14:44 70 16 100 03/24/17 14:44 70 16 03/24/17 14:44 70 16 03/24/17 14:44 70 16 100 03/24/17 14:41 152/66 03/24/17 14:41 152/66 03/24/17 14:39 71 18 03/24/17 14:39 70 18 100 03/24/17 14:39 71 18 03/24/17 14:39 70 18 100 03/24/17 14:37 149/72 03/24/17 14:37 149/72 03/24/17 14:35 116/77 03/24/17 14:35 116/77 03/24/17 14:34 36.0 73 20 116/77 100 Oxymask 14 03/24/17 08:00 Room Air 03/24/17 07:34 99 03/24/17 07:23 36.6 61 16 134/76 (95) 99 Room Air 03/24/17 04:36 36.5 67 16 119/65 (83) 100 Room Air 03/24/17 04:00 Room Air Notes Mental Status: alert / awake / arousable, participated in evaluation Pt Amnestic to Procedure: Yes Nausea / Vomiting: adequately controlled Pain: adequately controlled Airway Patency, RR, SpO2: stable & adequate BP & HR: stable & adequate Hydration State: stable & adequate Anesthetic Complications: no major complications apparent
--- NOTE | 2017-03-24 16:39 | Progress Note ---
Internal Med Progress Note Date of Service: Mar 24, 2017. Provider Documentation: SUBJECTIVE: The patient was seen and examined Denies any pain No Nausea and or vomiting No fever,chills OBJECTIVE: Vital Signs-as noted below Exam: General-NO distress at rets Eyes-normal ENT-normal Neck-supple Lungs-clear Heart-Regular,no murmur Abdomen-Benign,no epigastric and or RUQ pain Extremities-No edema Neuro-AAOx3 Lab data as noted below. ASSESSMENT & PLAN: Atypical chest pain. Pain is resolved Serial Raad are unremarkable for any ACS Acute cholecystitis. Ultrasonographic findings consistent with cholecystitis and associated with increased LFTs. US ::Findings consistent with acute cholecystitis. Normal caliber bile duct. Appreciate Surgery input GI consulted for perioperative Cholangiogram No white count. 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 Serial cardiac enzymes and no acute findings at this time.-no Acs Hyperlipidemia. SHE IS ALLERGIC TO STATINS. Not taking any medications at this time. Migraine. No acute attack. Had been on Imitrex as an outpatient. We will continue that if needed. Depression and anxiety. Has been on BuSpar and Ativan. Continue with that. Gastrointestinal prophylaxis with Maalox and Mylanta as needed. Deep venous thrombosis prophylaxis. Her platelet count seems to be low at this time. She has had low platelet since 2012. We will not order any heparin at this time for anticoagulation. Monitor the platelet with SCDs and ambulation as soon as possible. Code status. She will be a full code and further management will depend on clinical course. Vital Signs: Date Time Temp Pulse Resp B/P (MAP) Pulse Ox O2 Delivery O2 Flow Rate FiO2 03/24/17 16:00 Room Air 03/24/17 15:25 65 100 03/24/17 15:25 65 03/24/17 15:21 147/63 03/24/17 15:20 60 17 98 03/24/17 15:20 60 17 03/24/17 15:17 142/66 03/24/17 15:15 60 16 100 03/24/17 15:15 60 16 03/24/17 15:11 163/73 03/24/17 15:10 60 18 03/24/17 15:10 60 18 98 03/24/17 15:09 63 15 97 03/24/17 15:09 63 15 97 03/24/17 15:09 63 15 03/24/17 15:09 63 15 03/24/17 15:06 148/71 03/24/17 15:06 148/71 03/24/17 15:04 60 15 03/24/17 15:04 60 15 100 03/24/17 15:04 60 15 100 03/24/17 15:04 60 15 03/24/17 15:01 162/72 03/24/17 15:01 162/72 03/24/17 14:59 65 15 100 03/24/17 14:59 65 15 03/24/17 14:59 65 15 100 03/24/17 14:59 65 15 03/24/17 14:56 141/72 03/24/17 14:56 141/72 03/24/17 14:54 69 16 03/24/17 14:54 69 16 03/24/17 14:54 69 16 100 03/24/17 14:54 69 16 100 03/24/17 14:51 140/71 03/24/17 14:51 140/71 03/24/17 14:49 69 21 03/24/17 14:49 69 21 03/24/17 14:49 69 21 100 03/24/17 14:49 69 21 100 03/24/17 14:46 135/72 03/24/17 14:46 135/72 03/24/17 14:44 70 16 100 03/24/17 14:44 70 16 03/24/17 14:44 70 16 03/24/17 14:44 70 16 100 03/24/17 14:41 152/66 03/24/17 14:41 152/66 03/24/17 14:39 71 18 03/24/17 14:39 70 18 100 03/24/17 14:39 71 18 03/24/17 14:39 70 18 100 03/24/17 14:37 149/72 03/24/17 14:37 149/72 03/24/17 14:35 116/77 03/24/17 14:35 116/77 03/24/17 14:34 36.0 73 20 116/77 100 Oxymask 14 03/24/17 08:00 Room Air 03/24/17 07:34 99 9/25/17 07:23 36.6 61 16 134/76 (95) 99 Room Air 03/24/17 04:36 36.5 67 16 119/65 (83) 100 Room Air 03/24/17 04:00 Room Air 03/24/17 01:58 36.4 65 17 109/65 (80) 97 Room Air 03/23/17 23:35 Room Air 03/23/17 20:00 Room Air 03/23/17 19:59 36.5 64 16 143/72 (95) 99 Room Air Lab Results: Results Past 24 Hours Test 03/23/17 21:01 03/24/17 06:31 Range/Units Troponin I < 0.015 0-0.045 ng/ml White Blood Count 2.92 4.8-10.8 K/uL Red Blood Count 4.44 4.2-5.4 M/uL Hemoglobin 13.5 12.0-16.0 g/dL Hematocrit 40.9 37-47 % Mean Corpuscular Volume 92.1 80-100 fL Mean Corpuscular Hemoglobin 30.4 25-34 pg Mean Corpuscular Hemoglobin Concent 33.0 32-36 g/dl RDW Standard Deviation 46.7 36.4-46.3 fL RDW Coefficient of Variation 13.8 11.5-14.5 % Platelet Count 60 130-400 K/uL Mean Platelet Volume 11.4 7.4-10.4 fL Sodium Level 142 136-145 mmol/L Potassium Level 4.1 3.5-5.1 mmol/L Chloride Level 110 98-107 mmol/L Carbon Dioxide Level 23 21-32 mmol/L Anion Gap 9.0 3-11 mmol/L Blood Urea Nitrogen 7 7-18 mg/dl Creatinine 0.81 0.60-1.20 mg/dl Est Creatinine Clear Calc Drug Dose 57.2 ml/min Estimated GFR () 82.9 Estimated GFR (Non- 71.5 BUN/Creatinine Ratio 8.9 10-20 Random Glucose 80 70-99 mg/dl Calcium Level 8.5 8.5-10.1 mg/dl Total Bilirubin 1.9 0.2-1 mg/dl Aspartate Amino Transf (AST/SGOT) 137 15-37 U/L Alanine Aminotransferase (ALT/SGPT) 116 12-78 U/L Alkaline Phosphatase 117 45-117 U/L Total Protein 6.6 6.4-8.2 gm/dl Albumin 3.3 3.4-5.0 gm/dl Globulin 3.3 2.5-4.0 gm/dl Albumin/Globulin Ratio 1.0 0.9-2
[2017-03-24] MEDS: OXYCODONE HCL IR 5 MG TAB (IMMEDIATE RELEASE) PO PRN ×2 (17:08→21:43)
[2017-03-25] MEDS: AMPICILLIN/SULBACTAM SOD INJ 3,000 MG in SODIUM CHLORIDE 0.9% 100ML 100 ML IV SCH ×4 (02:14→20:34)
[2017-03-25 03:32] VITALS: BP 124/73; PULSE 69; TEMP 36.6; O2SAT 93
[2017-03-25 06:50] VITALS: BP 118/66; PULSE 66; TEMP 36.6; O2SAT 95
[2017-03-25 07:00] LABS: HEMATOCRIT 38.2 % (37-47); MEAN CELL VOLUME 90.7 fL (80-100); MEAN CORPUSCULAR HEMOGLOBIN 31.1 pg (25-34); MEAN CORPUSCULAR HGB CONC 34.3 g/dl (32-36); RED BLOOD COUNT 4.21 M/uL (4.2-5.4); WHITE BLOOD COUNT 8.72 K/uL (4.8-10.8)
[2017-03-25 07:09] LABS: EOS % 0.1 %; IG% 0.2 %; LYMPH % 9.1 %; LYMPH ABS # 0.79 K/uL (1.2-3.4); MEAN PLATELET VOLUME 11.3 fL (7.4-10.4); MONO % 5.7 %; NEUT % 84.9 %; PLATELET COUNT 75 K/uL (130-400)
[2017-03-25 07:24] LABS: COMPLETE YES
[2017-03-25 07:30] LABS: BUN/CREATININE RATIO 8.8 (10-20); CALCIUM 7.8 mg/dl (8.5-10.1); CREATININE 0.83 mg/dl (0.60-1.20); POTASSIUM 4.2 mmol/L (3.5-5.1)
--- NOTE | 2017-03-25 07:45 | Anesthesiology Progress Note ---
Anesthesia Post Op Note Date & Time Mar 25, 2017 at 07:44 Vital Signs Pain Intensity: 0.0 Vital Signs Past 12 Hours Date Time Temp Pulse Resp B/P (MAP) Pulse Ox O2 Delivery O2 Flow Rate FiO2 03/25/17 06:50 36.6 66 18 118/66 (83) 95 Room Air 03/25/17 04:00 Room Air 03/25/17 03:32 36.6 69 17 124/73 (90) 93 Room Air 03/24/17 23:59 Nasal Cannula 2.0 03/24/17 23:36 36.3 75 19 148/68 (94) 97 Nasal Cannula 2.5 03/24/17 20:00 Nasal Cannula 2.0 Notes Mental Status: alert / awake / arousable, participated in evaluation Pt Amnestic to Procedure: Yes Nausea / Vomiting: adequately controlled Pain: adequately controlled Airway Patency, RR, SpO2: stable & adequate BP & HR: stable & adequate Hydration State: stable & adequate Anesthetic Complications: no major complications apparent
[2017-03-25] MEDS: NSS + 20MEQ KCL 1000ML 1,000 ML IV SCH ×2 (07:55→17:58)
[2017-03-25] MEDS: OXYCODONE HCL IR 5 MG TAB (IMMEDIATE RELEASE) PO PRN ×3 (08:00→19:19)
--- NOTE | 2017-03-25 09:17 | Surgery Progress Note ---
Surgery Progress Note Date of Service Mar 25, 2017. Subjective Post OP Day: 1 Patient examined at bedside this morning. Afebrile, vitals stable on room air. Had a panic attack last night, associated with chest pain. EKG completed, showed T-wave inversions; repeated this morning, no longer showing inversions. This morning feels great. Pain is well controlled. Tolerating clear liquids without N/V. Voiding without difficulty. Has not yet been out of bed. Would like to try regular diet for lunch. Objective Vital Signs: Date Time Temp Pulse Resp B/P (MAP) Pulse Ox O2 Delivery O2 Flow Rate FiO2 03/25/17 06:50 36.6 66 18 118/66 (83) 95 Room Air 03/25/17 04:00 Room Air 03/25/17 03:32 36.6 69 17 124/73 (90) 93 Room Air 03/24/17 23:59 Nasal Cannula 2.0 03/24/17 23:36 36.3 75 19 148/68 (94) 97 Nasal Cannula 2.5 03/24/17 20:00 Nasal Cannula 2.0 03/24/17 19:35 36.4 84 16 149/67 (94) 98 Nasal Cannula 2.0 03/24/17 16:00 Room Air 03/24/17 15:49 20 155/70 (98) 99 03/24/17 15:34 20 158/72 (100) 100 03/24/17 15:25 65 100 03/24/17 15:25 65 03/24/17 15:21 147/63 03/24/17 15:20 60 17 98 03/24/17 15:20 60 17 03/24/17 15:17 142/66 03/24/17 15:15 60 16 100 03/24/17 15:15 60 16 03/24/17 15:11 163/73 03/24/17 15:10 60 18 03/24/17 15:10 60 18 98 03/24/17 15:09 63 15 97 03/24/17 15:09 63 15 97 03/24/17 15:09 63 15 03/24/17 15:09 63 15 03/24/17 15:06 148/71 03/24/17 15:06 148/71 03/24/17 15:04 60 15 03/24/17 15:04 60 15 100 03/24/17 15:04 60 15 100 03/24/17 15:04 60 15 03/24/17 15:01 162/72 03/24/17 15:01 162/72 03/24/17 14:59 65 15 100 03/24/17 14:59 65 15 03/24/17 14:59 65 15 100 03/24/17 14:59 65 15 03/24/17 14:56 141/72 03/24/17 14:56 141/72 03/24/17 14:54 69 16 03/24/17 14:54 69 16 03/24/17 14:54 69 16 100 03/24/17 14:54 69 16 100 03/24/17 14:51 140/71 03/24/17 14:51 140/71 03/24/17 14:49 69 21 03/24/17 14:49 69 21 03/24/17 14:49 69 21 100 03/24/17 14:49 69 21 100 03/24/17 14:46 135/72 03/24/17 14:46 135/72 03/24/17 14:44 70 16 100 03/24/17 14:44 70 16 03/24/17 14:44 70 16 03/24/17 14:44 70 16 100 03/24/17 14:41 152/66 03/24/17 14:41 152/66 03/24/17 14:39 71 18 03/24/17 14:39 70 18 100 03/24/17 14:39 71 18 03/24/17 14:39 70 18 100 03/24/17 14:37 149/72 03/24/17 14:37 149/72 03/24/17 14:35 116/77 03/24/17 14:35 116/77 03/24/17 14:34 36.0 73 20 116/77 100 Oxymask 14 General Appearance: WD/WN, no apparent distress Head: normocephalic Neck: supple Respiratory/Chest: lungs clear, normal breath sounds Cardiovascular: regular rate, rhythm Abdomen: normal bowel sounds, non distended, soft, + tenderness (appropriately tender to palpation) Incision(s): clean, intact, no erythema, ecchymosis (mild surrounding ecchymosis at umbilicus) Laboratory Results: Results Past 24 Hours Test 03/25/17 06:52 Range/Units White Blood Count 8.72 4.8-10.8 K/uL Red Blood Count 4.21 4.2-5.4 M/uL Hemoglobin 13.1 12.0-16.0 g/dL Hematocrit 38.2 37-47 % Mean Corpuscular Volume 90.7 80-100 fL Mean Corpuscular Hemoglobin 31.1 25-34 pg Mean Corpuscular Hemoglobin Concent 34.3 32-36 g/dl Platelet Count 75 130-400 K/uL Mean Platelet Volume 11.3 7.4-10.4 fL Neutrophils (%) (Auto) 84.9 % Lymphocytes (%) (Auto) 9.1 % Monocytes (%) (Auto) 5.7 % Eosinophils (%) (Auto) 0.1 % Basophils (%) (Auto) 0.0 % Neutrophils # (Auto) 7.40 1.4-6.5 K/uL Lymphocytes # (Auto) 0.79 1.2-3.4 K/uL Monocytes # (Auto) 0.50 0.11-0.59 K/uL Eosinophils # (Auto) 0.01 0-0.5 K/uL Basophils # (Auto) 0.00 0-0.2 K/uL RDW Standard Deviation 46.3 36.4-46.3 fL RDW Coefficient of Variation 13.9 11.5-14.5 % Immature Granulocyte % (Auto) 0.2 % Immature Granulocyte # (Auto) 0.02 0.00-0.02 K/uL Sodium Level 139 136-145 mmol/L Potassium Level 4.2 3.5-5.1 mmol/L Chloride Level 109 98-107 mmol/L Carbon Dioxide Level 24 21-32 mmol/L Anion Gap 6.0 3-11 mmol/L Blood Urea Nitrogen 7 7-18 mg/dl Creatinine 0.83 0.60-1.20 mg/dl Est Creatinine Clear Calc Drug Dose 56.5 ml/min Estimated GFR () 80.5 Estimated GFR (Non- 69.5 BUN/Creatinine Ratio 8.8 10-20 Random Glucose 110 70-99 mg/dl Calcium Level 7.8 8.5-10.1 mg/dl Total Bilirubin 1.4 0.2-1 mg/dl Direct Bilirubin 0.5 0-0.2 mg/dl Aspartate Amino Transf (AST/SGOT) 83 15-37 U/L Alanine Aminotransferase (ALT/SGPT) 89 12-78 U/L Alkaline Phosphatase 98 45-117 U/L Total Protein 5.9 6.4-8.2 gm/dl Albumin 2.9 3.4-5.0 gm/dl Assessment & Plan Trudy Cowan is a 76 year old woman admitted with chest pain, found to have acute cholecystitis. She is now POD 1 s/p laparoscopic cholecystectomy with intraoperative cholangiogram. No CBD filling defects were seen on the cholangiogram. There were no complications, patient tolerated the procedure well. -Advance to regular diet -Pain control as needed -Encourage ambulation -Possible discharge after lunch if continues to do well Carlie Booth MD 03/25/17
[2017-03-25 11:34] VITALS: BP 97/57; PULSE 68; TEMP 36.5; O2SAT 94
--- NOTE | 2017-03-25 12:14 | Progress Note ---
Internal Med Progress Note Date of Service: Mar 25, 2017. Provider Documentation: SUBJECTIVE: The patient was seen and examined S/P Lap Cholecystectomy Doing well following Surgery Tolerating diet and likely discharge this afternoon OBJECTIVE: Vital Signs-as noted below Exam: General-NO distress at rest Eyes-normal ENT-normal Neck-supple Lungs-clear Heart-Regular,no murmur Abdomen-Benign,soft ,mildly tender ,bowel sound present Extremities-No edema Neuro-AAOx3 Lab data as noted below. ASSESSMENT & PLAN: Atypical chest pain. Pain is resolved Serial Raad are unremarkable for any ACS No more chest pain Acute cholecystitis. s/p Lap Sonam on 03/24/16 Ultrasonographic findings consistent with cholecystitis and associated with increased LFTs. US ::Findings consistent with acute cholecystitis. Normal caliber bile duct. Appreciate Surgery input GI consulted for perioperative Cholangiogram No white count. 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 Serial cardiac enzymes and no acute findings at this time.-no Acs Hyperlipidemia. SHE IS ALLERGIC TO STATINS. Not taking any medications at this time. Migraine. No acute attack. Had been on Imitrex as an outpatient. We will continue that if needed. Depression and anxiety. Has been on BuSpar and Ativan. Continue with that. Gastrointestinal prophylaxis with Maalox and Mylanta as needed. Deep venous thrombosis prophylaxis. Her platelet count seems to be low at this time. She has had low platelet since 2012. We will not order any heparin at this time for anticoagulation. Monitor the platelet with SCDs and ambulation as soon as possible. Code status. She will be a full code and further management will depend on clinical course. Likely discharge this afternoon Vital Signs: Date Time Temp Pulse Resp B/P (MAP) Pulse Ox O2 Delivery O2 Flow Rate FiO2 03/25/17 11:34 36.5 68 18 97/57 (70) 94 Room Air 03/25/17 08:00 Room Air 03/25/17 06:50 36.6 66 18 118/66 (83) 95 Room Air 03/25/17 04:00 Room Air 03/25/17 03:32 36.6 69 17 124/73 (90) 93 Room Air 03/24/17 23:59 Nasal Cannula 2.0 03/24/17 23:36 36.3 75 19 148/68 (94) 97 Nasal Cannula 2.5 03/24/17 20:00 Nasal Cannula 2.0 03/24/17 19:35 36.4 84 16 149/67 (94) 98 Nasal Cannula 2.0 03/24/17 16:00 Room Air 03/24/17 15:49 20 155/70 (98) 99 03/24/17 15:34 20 158/72 (100) 100 03/24/17 15:25 65 100 03/24/17 15:25 65 03/24/17 15:21 147/63 03/24/17 15:20 60 17 98 03/24/17 15:20 60 17 03/24/17 15:17 142/66 03/24/17 15:15 60 16 100 03/24/17 15:15 60 16 03/24/17 15:11 163/73 03/24/17 15:10 60 18 03/24/17 15:10 60 18 98 03/24/17 15:09 63 15 97 03/24/17 15:09 63 15 97 03/24/17 15:09 63 15 03/24/17 15:09 63 15 03/24/17 15:06 148/71 03/24/17 15:06 148/71 03/24/17 15:04 60 15 03/24/17 15:04 60 15 100 03/24/17 15:04 60 15 100 03/24/17 15:04 60 15 03/24/17 15:01 162/72 03/24/17 15:01 162/72 03/24/17 14:59 65 15 100 03/24/17 14:59 65 15 03/24/17 14:59 65 15 100 03/24/17 14:59 65 15 03/24/17 14:56 141/72 03/24/17 14:56 141/72 03/24/17 14:54 69 16 03/24/17 14:54 69 16 03/24/17 14:54 69 16 100 03/24/17 14:54 69 16 100 03/24/17 14:51 140/71 03/24/17 14:51 140/71 03/24/17 14:49 69 21 03/24/17 14:49 69 21 03/24/17 14:49 69 21 100 03/24/17 14:49 69 21 100 03/24/17 14:46 135/72 03/24/17 14:46 135/72 03/24/17 14:44 70 16 100 03/24/17 14:44 70 16 03/24/17 14:44 70 16 03/24/17 14:44 70 16 100 03/24/17 14:41 152/66 03/24/17 14:41 152/66 03/24/17 14:39 71 18 03/24/17 14:39 70 18 100 03/24/17 14:39 71 18 03/24/17 14:39 70 18 100 03/24/17 14:37 149/72 03/24/17 14:37 149/72 03/24/17 14:35 116/77 03/24/17 14:35 116/77 03/24/17 14:34 36.0 73 20 116/77 100 Oxymask 14 Lab Results: Results Past 24 Hours Test 03/25/17 06:52 Range/Units White Blood Count 8.72 4.8-10.8 K/uL Red Blood Count 4.21 4.2-5.4 M/uL Hemoglobin 13.1 12.0-16.0 g/dL Hematocrit 38.2 37-47 % Mean Corpuscular Volume 90.7 80-100 fL Mean Corpuscular Hemoglobin 31.1 25-34 pg Mean Corpuscular Hemoglobin Concent 34.3 32-36 g/dl Platelet Count 75 130-400 K/uL Mean Platelet Volume 11.3 7.4-10.4 fL Neutrophils (%) (Auto) 84.9 % Lymphocytes (%) (Auto) 9.1 % Monocytes (%) (Auto) 5.7 % Eosinophils (%) (Auto) 0.1 % Basophils (%) (Auto) 0.0 % Neutrophils # (Auto) 7.40 1.4-6.5 K/uL Lymphocytes # (Auto) 0.79 1.2-3.4 K/uL Monocytes # (Auto) 0.50 0.11-0.59 K/uL Eosinophils # (Auto) 0.01 0-0.5 K/uL Basophils # (Auto) 0.00 0-0.2 K/uL RDW Standard Deviation 46.3 36.4-46.3 fL RDW Coefficient of Variation 13.9 11.5-14.5 % Immature Granulocyte % (Auto) 0.2 % Immature Granulocyte # (Auto) 0.02 0.00-0.02 K/uL Sodium Level 139 136-145 mmol/L Potassium Level 4.2 3.5-5.1 mmol/L Chloride Level 109 98-107 mmol/L Carbon Dioxide Level 24 21-32 mmol/L Anion Gap 6.0 3-11 mmol/L Blood Urea Nitrogen 7 7-18 mg/dl Creatinine 0.83 0.60-1.20 mg/dl Est Creatinine Clear Calc Drug Dose 56.5 ml/min Estimated GFR () 80.5 Estimated GFR (Non- 69.5 BUN/Creatinine Ratio 8.8 10-20 Random Glucose 110 70-99 mg/dl Calcium Level 7.8 8.5-10.1 mg/dl Total Bilirubin 1.4 0.2-1 mg/dl Direct Bilirubin 0.5 0-0.2 mg/dl Aspartate Amino Transf (AST/SGOT) 83 15-37 U/L Alanine Aminotransferase (ALT/SGPT) 89 12-78 U/L Alkaline Phosphatase 98 45-117 U/L Total Protein 5.9 6.4-8.2 gm/dl Albumin 2.9 3.4-5.0 gm/dl
--- NOTE | 2017-03-25 15:19 | Discharge Instructions ---
Discharge Instructions Date of Service Mar 25, 2017. Admission Reason for Admission: Acute Cholecystitis, Chest Pain Discharge Discharge Diagnosis / Problem: Acute cholecystitis Discharge Goals Goal(s): Decrease discomfort, Improve function Activity Recommendations Activity Limitations: per Instructions/Follow-up section . Instructions / Follow-Up Instructions / Follow-Up -You may take Oxycodone as needed for pain that is not controlled with Tylenol or Ibuprofen. -Do not drive while taking narcotic pain medication (Oxycodone), or while you are still having abdominal pain. -You may resume your normal diet; you have no restrictions from a surgical perspective. -You have Dermabond (surgical glue) over your incisions. This will fall off on its own over time. You may shower - just wash gently over the incisions with warm, soapy water. Do not scrub. Do not soak, as in a bathtub or swimming pool. -Do not lift anything greater than 10 lbs for 2 weeks. Walking is encouraged; you have no restriction on stairs. -Please call [phone] to schedule a follow up appointment in the [facility] clinic with Dr. Booth in 1 to 2 weeks. -Please call the clinic if you have increased pain, pain that is not controlled with medications, if you develop a fever, or if you develop redness, swelling, or drainage from your incisions. Current Hospital Diet Patient's current hospital diet: Regular Diet Discharge Diet Recommended Diet: Regular Diet Procedures Procedures Performed: Laparoscopic Cholecystectomy with Cholangiogram Pending Studies Studies pending at discharge: yes List of pending studies: Gallbladder pathology - will be discussed at follow up appointment. Medical Emergencies . Who to Call and When: Medical Emergencies: If at any time you feel your situation is an emergency, please call 911 immediately. . Non-Emergent Contact Non-Emergency issues call your: Primary Care Provider, Surgeon Call Non-Emergent contact if: temperature is above 101, your pain is not controlled, your pain is worsening, wound has increased drainage, wound has increased redness, wound has increased pain . "Provider Documentation" section prepared by Carlie Booth. . VTE Core Measure Inpt VTE Proph given/why not?: Niraj Zamora, MICHELLE's
[2017-03-25 16:03] VITALS: BP 137/71; PULSE 73; TEMP 36.6; O2SAT 94
[2017-03-25 19:35] VITALS: BP 166/72; PULSE 87; TEMP 36.7; O2SAT 93
--- NOTE | 2017-03-25 20:30 | DIAGNOSTIC IMAGING REPORT ---
R SHOULDER MIN 2 VIEWS ROUTINE CLINICAL HISTORY: 76 years-old Female presenting with R shoulder pain. TECHNIQUE: Internal rotation, external rotation, and Grashey views of the right shoulder were obtained. COMPARISON: None. FINDINGS: Glenohumeral and acromioclavicular joints congruent. No significant degenerative change. No acute fracture or malalignment. Regional soft tissues within normal limits. Visualized portion of the right hemithorax suggest free gas under the diaphragm, which could be consistent with the recent postoperative state. Additional right basilar opacity likely atelectasis. IMPRESSION: 1. No acute osseous injury of the right shoulder. 2. Apparent pneumoperitoneum likely relates to the patient's recent postoperative state. Electronically signed by: Sanjay Bang M.D. 03/25/2017 8:29 PM Dictated Date/Time: 03/25/2017 8:27 PM
[2017-03-25 23:07] VITALS: BP 126/65; PULSE 76; TEMP 37; O2SAT 92
[2017-03-26] MEDS: AMPICILLIN/SULBACTAM SOD INJ 3,000 MG in SODIUM CHLORIDE 0.9% 100ML 100 ML IV SCH ×3 (01:22→13:33)
[2017-03-26] MEDS: NSS + 20MEQ KCL 1000ML 1,000 ML IV SCH ×2 (01:23→10:42)
[2017-03-26] MEDS: OXYCODONE HCL IR 5 MG TAB (IMMEDIATE RELEASE) PO PRN (01:28)
[2017-03-26] MEDS ORDERED: DOCUSATE SODIUM 100 MG CAP PO ONE (02:15)
[2017-03-26 03:27] VITALS: BP 135/62; PULSE 77; TEMP 36.8; O2SAT 91
[2017-03-26 07:53] VITALS: BP 120/63; PULSE 65; TEMP 36.8; O2SAT 93
[2017-03-26] MEDS ORDERED: OXYC1CAP5 PO (08:35)
[2017-03-26] MEDS: ACETAMINOPHEN 325 MG TAB PO PRN ×2 (08:57→13:35)
[2017-03-26] MEDS ORDERED: DOCUSATE SODIUM 100 MG CAP PO SCH (09:00)
--- NOTE | 2017-03-26 09:57 | Surgery Progress Note ---
Surgery Progress Note Date of Service Mar 26, 2017. Subjective Post OP Day: 2 Patient examined at bedside this morning. Afebrile, vitals stable overnight on room air, no acute events. Was having some shoulder pain yesterday, likely referred pain from retained laparoscopic insufflation - now resolved. Pain is otherwise well controlled. Tolerating diet without N/V. Ambulating and voiding without difficulty. Passing flatus. Incisions healing well. Objective Vital Signs: Date Time Temp Pulse Resp B/P (MAP) Pulse Ox O2 Delivery O2 Flow Rate FiO2 03/26/17 09:13 Room Air 03/26/17 07:53 36.8 65 18 120/63 (82) 93 Room Air 03/26/17 04:00 Nasal Cannula 2.0 03/26/17 03:27 36.8 77 20 135/62 (86) 91 Nasal Cannula 2.0 03/26/17 00:01 Room Air 03/25/17 23:07 37.0 76 16 126/65 (85) 92 Room Air 03/25/17 20:00 Room Air 03/25/17 19:35 36.7 87 16 166/72 (103) 93 Room Air 03/25/17 16:03 36.6 73 18 137/71 (93) 94 Room Air 03/25/17 16:00 Room Air 03/25/17 12:00 Room Air 03/25/17 11:34 36.5 68 18 97/57 (70) 94 Room Air General Appearance: WD/WN, no apparent distress Head: normocephalic, atraumatic Neck: supple Respiratory/Chest: lungs clear, normal breath sounds, no respiratory distress Cardiovascular: regular rate, rhythm Abdomen: normal bowel sounds, non tender, non distended, soft Incision(s): clean, dry, intact (Dermabond intact), no erythema Laboratory Results: Results Past 24 Hours Test 03/25/17 21:28 Range/Units Total Bilirubin 1.1 0.2-1 mg/dl Direct Bilirubin 0.5 0-0.2 mg/dl Aspartate Amino Transf (AST/SGOT) 60 15-37 U/L Alanine Aminotransferase (ALT/SGPT) 72 12-78 U/L Alkaline Phosphatase 94 45-117 U/L Total Protein 6.0 6.4-8.2 gm/dl Albumin 2.9 3.4-5.0 gm/dl Lipase 131 73-393 U/L Assessment & Plan Trudy Cowan is a 76 year old woman admitted with chest pain, found to have acute cholecystitis. She is now POD 2 s/p laparoscopic cholecystectomy with intraoperative cholangiogram. No CBD filling defects were seen on the cholangiogram. There were no complications, patient tolerated the procedure well. -Regular diet as tolerated -Pain control as needed -Encourage ambulation -Cleared for discharge from Surgical standpoint; prescriptions for pain medication written and discharge instructions provided. Carlie Booth MD 03/26/17
[2017-03-26 11:08] VITALS: BP 121/67; PULSE 60; TEMP 36.7; O2SAT 91
--- NOTE | 2017-03-26 13:19 | Progress Note ---
Internal Med Progress Note Date of Service: Mar 26, 2017. Provider Documentation: SUBJECTIVE: The patient was seen and examined S/P Lap Cholecystectomy Doing well following Surgery Much better this morning Seen by the surgeon and discahrged OBJECTIVE: Vital Signs-as noted below Exam: General-NO distress at rest Eyes-normal ENT-normal Neck-supple Lungs-clear Heart-Regular,no murmur Abdomen-Benign,soft ,mildly tender ,bowel sound present Extremities-No edema Neuro-AAOx3 Lab data as noted below. ASSESSMENT & PLAN: Atypical chest pain. Pain is resolved and likely source of the pain was the Gall bladder disease Serial Raad are unremarkable for any ACS No more chest pain Acute cholecystitis. s/p Lap Sonam on 03/24/16 Ultrasonographic findings consistent with cholecystitis and associated with increased LFTs. US ::Findings consistent with acute cholecystitis. Normal caliber bile duct. Appreciate Surgery input GI consulted for perioperative Cholangiogram No white count. 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 Serial cardiac enzymes and no acute findings at this time.-no Acs Hyperlipidemia. SHE IS ALLERGIC TO STATINS. Not taking any medications at this time. Migraine. No acute attack. Had been on Imitrex as an outpatient. We will continue that if needed. Depression and anxiety. Has been on BuSpar and Ativan. Continue with that. Gastrointestinal prophylaxis with Maalox and Mylanta as needed. Deep venous thrombosis prophylaxis. Her platelet count seems to be low at this time. She has had low platelet since 2012. We will not order any heparin at this time for anticoagulation. Monitor the platelet with SCDs and ambulation as soon as possible. Code status. She will be a full code and further management will depend on clinical course. Discharge home today Vital Signs: Date Time Temp Pulse Resp B/P (MAP) Pulse Ox O2 Delivery O2 Flow Rate FiO2 03/26/17 12:00 Room Air 03/26/17 11:08 36.7 60 16 121/67 (85) 91 Room Air 03/26/17 09:13 Room Air 03/26/17 08:00 Room Air 03/26/17 07:53 36.8 65 18 120/63 (82) 93 Room Air 03/26/17 04:00 Nasal Cannula 2.0 03/26/17 03:27 36.8 77 20 135/62 (86) 91 Nasal Cannula 2.0 03/26/17 00:01 Room Air 03/25/17 23:07 37.0 76 16 126/65 (85) 92 Room Air 03/25/17 20:00 Room Air 03/25/17 19:35 36.7 87 16 166/72 (103) 93 Room Air 03/25/17 16:03 36.6 73 18 137/71 (93) 94 Room Air 03/25/17 16:00 Room Air Lab Results: Results Past 24 Hours Test 03/25/17 21:28 Range/Units Total Bilirubin 1.1 0.2-1 mg/dl Direct Bilirubin 0.5 0-0.2 mg/dl Aspartate Amino Transf (AST/SGOT) 60 15-37 U/L Alanine Aminotransferase (ALT/SGPT) 72 12-78 U/L Alkaline Phosphatase 94 45-117 U/L Total Protein 6.0 6.4-8.2 gm/dl Albumin 2.9 3.4-5.0 gm/dl Lipase 131 73-393 U/L
[2017-03-26 14:39] VITALS: BP 121/67; PULSE 60; TEMP 36.7; O2SAT 91
--- NOTE | 2017-03-27 10:35 | Discharge Summary ---
Discharge Summary Date of Service Mar 27, 2017. Discharge Summary Admission Date: Mar 23, 2017 at 09:56 Discharge Date: Mar 26, 2017 Discharge Disposition: Home Principal Diagnosis: Acute cholecystitis,S/P Lap Cholecystectomy Secondary Diagnoses/Problems: Please see H&P and Hospital Progress note Procedures: Laparoscopic Cholecystectomy Consultations: Surgery and GI Medication Reconciliation New Medications: Oxycodone Hcl (Oxycodone Hcl) 5 Mg Cap 1-2 CAP PO Q4H PRN for Pain, #30 CAP Continued Medications: Buspirone Hcl (Buspirone Hcl) 10 Mg Tab 10 MG PO BID, TAB Lorazepam (Ativan) 0.5 Mg Tab 0.5 MG PO DAILY PRN for Anxiety, TAB Admission Information HPI (per Admitting provider): DATE OF ADMISSION: 03/23/2017 PRIMARY CARE PROVIDER: Benson Sepulveda MD CHIEF COMPLAINT: Woke up with the chest pressure across the lower chest since around 04:00 a.m. with shortness of breath. 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 Apparently, she has been complaining of night sweats for about 4 months. She has had investigations for that, but did not have any significant cause for that. Early this morning today, she woke up with lower chest pressure across the chest, associated with shortness of breath. She did not have any fever or any sweating, but she has had some nausea but no vomiting. She has had these symptoms about 1 month ago that resolved spontaneously, but today, it did not go away and then, she came to the Emergency Room. She denies having any pain in the abdomen or any abdominal distention. She does not have any problem with urine and/or bowel habit. Denies to have any fever, any chills, any blurred vision, or any numbness or tingling in the extremities. In the Emergency Room, she was hemodynamically stable and she was noted to have elevated liver function tests on examination and also ultrasound did show acute cholecystitis. From that point, she was admitted to the hospital for further evaluation. Given her Lyme carditis and also ongoing chest pain, she was admitted to telemetry unit to rule out any ACS as well. PAST MEDICAL HISTORY: Significant sinus node dysfunction status post pacemaker, history of Lyme carditis, depression, hyperlipidemia, atypical chest pain and also migraine. PAST SURGICAL HISTORY: Total hysterectomy and status post pacemaker placement. FAMILY HISTORY: Significant that brother has heart disorder. Father had cerebral hemorrhage. Mother has dementia. SOCIAL HISTORY: She is . She has 2 children. She lives with her and she has been reasonably ambulant. REVIEW OF SYSTEMS: Systems reviewed are unremarkable except for those mentioned in history of present complaint. ALLERGIES: SHE IS ALLERGIC TO ATORVASTATIN, MUSHROOM AND PHENYTOIN. MEDICATIONS: As an outpatient, she has been on buspirone 10 mg b.i.d. and lorazepam 0.5 mg daily as needed. In the Epic system, she is noted to have Imitrex, gabapentin and also Boniva. PHYSICAL EXAMINATION: GENERAL: On examination in the Emergency Room, she was not having any acute distress. VITAL SIGNS: Temperature afebrile, pulse 64, blood pressure 110/59 and saturation 95% on room air. HEENT: Unremarkable. NECK: Supple. No JVD and no bruit. CHEST: Clear to auscultation bilaterally. HEART: S1 and S2 regular. ABDOMEN: Soft and benign. Minimally tender right upper quadrant. Vincent sign negative. Bowel sounds present. RECTAL: Deferred. EXTREMITIES: Trace edema bilaterally, more on the right than the left side. CENTRAL NERVOUS SYSTEM: She was alert, awake, and oriented x3. No focal sensory and/or motor deficit appreciated. LABORATORY DATA: Noted today, white count was 4.59, H&H is 14.2/40.8, and platelets was 77. Sodium 140, potassium 3.8, chloride 108, CO2 was 25, BUN 9, creatinine 0.93, random glucose 101, and calcium 8.6. Total bilirubin was 2.3. AST 216, ALT 105, and alkaline phosphatase 121. Troponin was less than 0.03. PT/INR unremarkable. DIAGNOSTIC STUDIES: Chest x-ray reported as no acute process and ultrasound of the gallbladder findings consistent with acute cholecystitis, normal caliber bile duct. EKG was in atrial paced rhythm and rate of [address]-T wave changes. IMPRESSION AND PLAN: 1. Atypical chest pain. The patient will be admitted to the telemetry unit. Doubt any acute coronary syndrome. Serial cardiac enzymes to rule out acute coronary syndrome. EKG with chest pain. Doubt any need for doing any echo at this time. 2. Acute cholecystitis. Ultrasonographic findings consistent with cholecystitis and associated with increased LFTs. No white count. The patient has a history of night sweats and continue with intravenous Unasyn. Surgery consultation. Probable cholecystectomy down the line. 3. 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 Serial cardiac enzymes and no acute findings at this time. 4. Hyperlipidemia. SHE IS ALLERGIC TO STATINS. Not taking any medications at this time. 5. Migraine. No acute attack. Had been on Imitrex as an outpatient. We will continue that if needed. 6. Depression and anxiety. Has been on BuSpar and Ativan. Continue with that. 7. Gastrointestinal prophylaxis with Maalox and Mylanta as needed. 8. Deep venous thrombosis prophylaxis. Her platelet count seems to be low at this time. She has had low platelet since 2012. We will not order any heparin at this time for anticoagulation. Monitor the platelet with SCDs and ambulation as soon as possible. 9. Code status. She will be a full code and further management will depend on clinical course. In my clinical judgment, the beneficiary meets criteria as per CMS for 2 midnight stay in the hospital. Hospital Course Atypical chest pain. Pain is resolved and likely source of the pain was the Gall bladder disease Serial Raad are unremarkable for any ACS No more chest pain Acute cholecystitis. s/p Lap Sonam on 03/24/16 Ultrasonographic findings consistent with cholecystitis and associated with increased LFTs. US ::Findings consistent with acute cholecystitis. Normal caliber bile duct. Appreciate Surgery input GI consulted for perioperative Cholangiogram No white count. 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 Serial cardiac enzymes and no acute findings at this time.-no Acs Hyperlipidemia. SHE IS ALLERGIC TO STATINS. Not taking any medications at this time. Migraine. No acute attack. Had been on Imitrex as an outpatient. We will continue that if needed. Depression and anxiety. Has been on BuSpar and Ativan. Continue with that. Gastrointestinal prophylaxis with Maalox and Mylanta as needed. Deep venous thrombosis prophylaxis. Her platelet count seems to be low at this time. She has had low platelet since 2012. We will not order any heparin at this time for anticoagulation. Monitor the platelet with SCDs and ambulation as soon as possible. Code status. She will be a full code and further management will depend on clinical course. Discharge home today Total time spent on discharge = 35 minutes This includes examination of the patient, discharge planning, medication reconciliation, and communication with other providers. Discharge Instructions Date of Service Mar 25, 2017. Admission Reason for Admission: Acute Cholecystitis, Chest Pain Discharge Discharge Diagnosis / Problem: Acute cholecystitis Discharge Goals Goal(s): Decrease discomfort, Improve function Activity Recommendations Activity Limitations: per Instructions/Follow-up section . Instructions / Follow-Up Instructions / Follow-Up -You may take Oxycodone as needed for pain that is not controlled with Tylenol or Ibuprofen. -Do not drive while taking narcotic pain medication (Oxycodone), or while you are still having abdominal pain. -You may resume your normal diet; you have no restrictions from a surgical perspective. -You have Dermabond (surgical glue) over your incisions. This will fall off on its own over time. You may shower - just wash gently over the incisions with warm, soapy water. Do not scrub. Do not soak, as in a bathtub or swimming pool. -Do not lift anything greater than 10 lbs for 2 weeks. Walking is encouraged; you have no restriction on stairs. -Please call [phone] to schedule a follow up appointment in the [facility] clinic with Dr. Booth in 1 to 2 weeks. -Please call the clinic if you have increased pain, pain that is not controlled with medications, if you develop a fever, or if you develop redness, swelling, or drainage from your incisions. Current Hospital Diet Patient's current hospital diet: Regular Diet Discharge Diet Recommended Diet: Regular Diet Procedures Procedures Performed: Laparoscopic Cholecystectomy with Cholangiogram Pending Studies Studies pending at discharge: yes List of pending studies: Gallbladder pathology - will be discussed at follow up appointment. Medical Emergencies . Who to Call and When: Medical Emergencies: If at any time you feel your situation is an emergency, please call 911 immediately. . Non-Emergent Contact Non-Emergency issues call your: Primary Care Provider, Surgeon Call Non-Emergent contact if: temperature is above 101, your pain is not controlled, your pain is worsening, wound has increased drainage, wound has increased redness, wound has increased pain . "Provider Documentation" section prepared by Carlie Booth. . VTE Core Measure Inpt VTE Proph given/why not?: Niraj Zamora, SCD's <Electronically signed by Carlie Booth M.D.> Signed: 03/25/17 4134 Signed: The status of this report is Signed * If report status is Draft, the document has not been finalized by the responsible provider. Addendum: 03/26/17 1413 Addendum: Marj Johnson M.D. on 03/26/17 @ 14:13 Discharge Inst - Addendum Addendum Notes: Appointment with Dr Sepulveda on 04/01/17 at 10:45 AM.Keep appointment with the surgeon Addendum Provider: Addendum Notes were documented by provider Marj Johnson. Signed: 03/25/17 8103 Additional Copies To Benson Sepulveda III, M.D.
--- NOTE | 2017-04-02 08:55 | EDITING REQUIRED CODING QUERY ---
CODING QUERY To promote full compliance with coding requirements relating to patient care, provider participation is requested in all cases of b2b sales executive uncertainty. Please assist us with the question(s) below: Coding Question(s): Dr. Palafox, Sepsis is documented in the progress notes, but is not listed in the discharge summary. Please clarify if: ( ) sepsis was present and treated during this encounter ( ) POA ( ) not POA ( ) sepsis was ruled out ( ) unable to determine ( ) other, please explain Physician's Response(s): Thank you for your time, NOEMI German, LEAD SIMULATION MODELING ENGINEER
== END 2017-03-26 15:43 | disposition home or self-care (01) | DRG 418 ==
LOC: C.EDB 05:09 → ENRESERV 09:40 → C.2T 09:56
PROVIDERS: ADMIT Internal Medicine; ATTEND Internal Medicine
PROC: BF100ZZ Fluoroscopy of Bile Ducts using High Osmolar Contrast (ICD-10-PCS; principal; 2017-03-24 09:30)
PROC: 0FT44ZZ Resection of Gallbladder, Percutaneous Endoscopic Approach (ICD-10-PCS; principal; 2017-03-24 09:30)
DX: K80.42 Calculus of bile duct with acute cholecystitis without obstruction (principal); A69.29 Other conditions associated with Lyme disease; K82.8 Other specified diseases of gallbladder; R07.89 Other chest pain; M25.519 Pain in unspecified shoulder; R61 Generalized hyperhidrosis; D69.6 Thrombocytopenia, unspecified; E78.5 Hyperlipidemia, unspecified; G43.909 Migraine, unspecified, not intractable, without status migrainosus; F41.9 Anxiety disorder, unspecified; F32.9 Major depressive disorder, single episode, unspecified; Z95.0 Presence of cardiac pacemaker; Z88.8 Allergy status to other drugs, medicaments and biological substances; Z79.83 Long term (current) use of bisphosphonates; Z79.899 Other long term (current) drug therapy